=== PATIENT | female | born 1930 | race Caucasian/White ===

== ENCOUNTER 2018-08-02 17:17 | Inpatient (IN) | payer MEDICARE, OTHER ==
[~2018-08-02] VITALS: Ht 172.7 cm; Wt 70.5 kg
[~2018-08-02 17:17] MED LIST: CARI350T PO; CYCL-394 PO; NO HOME MEDS; NORCO10T PO
[2018-08-02 18:01] LABS: BASOPHILS % (AUTO) 0.7 % (0-1); EOSINOPHILS % (AUTO) 0.8 % (0-6); HEMOGLOBIN 15.6 g/dl (12.0-16.0); LYMPHOCYTES # (AUTO) 1.6 X10'3 (1.1-4.8); LYMPHOCYTES % (AUTO) 26.2 % (21-51); MEAN CORPUSCULAR HEMOGLOBIN 30.3 PG (27.0-31.0); MEAN CORPUSCULAR HGB CONC 33.1 % (33.0-36.5); MEAN CORPUSCULAR VOLUME 91.4 FL (78-98); MEAN PLATELET VOLUME 7.4 FL (7.4-10.4); MONOCYTES # (AUTO) 0.5 X10'3 (0-0.9); MONOCYTES % (AUTO) 7.5 % (2-12); NEUTROPHILS % (AUTO) 64.8 % (42-75); PLATELET COUNT 335 X10'3 (140-440); RED BLOOD COUNT 5.14 X10'6 (4.20-5.60); RED CELL DISTRIBUTION WIDTH 14.7 % (11.5-14.5); WHITE BLOOD COUNT 6.2 X10'3 (4.5-11.0)
[2018-08-02 18:14] LABS: ALANINE AMINOTRANSFERASE 17 U/L (12-78); ALBUMIN 3.9 G/DL (3.4-5.0); ALBUMIN/GLOBULIN RATIO 1.2 (1.1-1.5); ALKALINE PHOSPHATASE 135 IU/L (46-116); ANION GAP 10 (8-16); ASPARTATE AMINO TRANSFERASE 16 U/L (10-37); BILIRUBIN,TOTAL 0.4 MG/DL (0.1-1.0); BLOOD UREA NITROGEN 16 MG/DL (7-18); BUN/CREATININE RATIO 18.8 (6.6-38.0); CALCIUM 9.4 MG/DL (8.5-10.1); CHLORIDE 103 MMOL/L (99-107); CREATININE 0.85 MG/DL (0.40-0.90); GLUCOSE 125 MG/DL (70-104); POTASSIUM 3.5 MMOL/L (3.5-5.1); SODIUM 140 MMOL/L (135-145); TOTAL CARBON DIOXIDE 26.6 MMOL/L (24-32); TOTAL PROTEIN 7.1 G/DL (6.4-8.2); eGFR 63 ML/MIN
[2018-08-02 18:55] LABS: CLARITY,URINE SLIGHTLY CLOUDY (Clear); COLOR,URINE YELLOW (Yellow); GLUCOSE, URINE NEGATIVE (Neg); KETONES,URINE NEGATIVE (Neg); LEUKOCYTE ESTERASE ,URINE TRACE (Neg); NITRITES, URINE POSITIVE (Neg); OCCULT BLOOD,URINE SMALL (Neg); PH,URINE 5.5 (4.8-8.0); PROTEIN,URINE NEGATIVE (Neg); UROBILINOGEN,URINE 0.2 E.U/dL (0.2-1.0)
[2018-08-02 19:02] LABS: UA COLLECTION TYPE CLN CATCH MIDSTREAM
[2018-08-02 19:04] LABS: BACTERIA,URINE 4+ /HPF (Neg); RBC,URINE 0-2 /HPF (0-2); SQUAMOUS EPITHELIAL CELL,UR MODERATE /LPF (FEW); TRANSITIONAL EPI CELLS,URINE FEW /HPF
[2018-08-02] MEDS ORDERED: temazepam 15mg capsule PO PRN (21:00)
[2018-08-02] MEDS ORDERED: HYDROmorphone 1 mg/ml syringe IV PRN (21:15)
[2018-08-02] MEDS ORDERED: diphenhydrAMINE 25mg capsule PO PRN (21:15)
[2018-08-02] MEDS ORDERED: mag hydrox/Alum hydrox/simeth 30ml oral suspension PO PRN (21:15)
[2018-08-02] MEDS ORDERED: diphenhydrAMINE 50 mg/ml inj IV PRN (21:15)
[2018-08-02] MEDS ORDERED: ondansetron/PF 4mg/2ml inj IV PRN (21:15)
[2018-08-02] MEDS ORDERED: acetaminophen 325mg tablet PO PRN ×2 (21:15)
[2018-08-02] MEDS ORDERED: acetaminophen 650mg rectal suppository RC PRN (21:15)
[2018-08-02] MEDS ORDERED: magnesium hydroxide 30ml (MOM) UD suspension PO PRN (21:15)
[2018-08-02] MEDS ORDERED: HYDROcodone/acetaminophen 10/325mg tab PO PRN (21:15)
[2018-08-02] MEDS ORDERED: morphine 4 MG/ML inj SYRINge IV PRN (21:15)
[2018-08-02] MEDS ORDERED: bisacodyl 10mg suppository rectal RC PRN (21:15)
[2018-08-02] MEDS ORDERED: metoclopramide 5 mg/ml inj IV PRN (21:15)
[2018-08-02] MEDS ORDERED: hydrALAZINE 20mg/ml inj. IV PRN (21:20)
[2018-08-02] MEDS: normal saline 1000ml 1,000 ML IV SCH (22:08)
--- NOTE | 2018-08-02 22:42 | NUR ---
Called floor for report, RN to return call to ER.
[2018-08-02 23:15] VITALS: BP 166/98
--- NOTE | 2018-08-02 23:15 | NUR ---
PATIENT ADMITTED TO ROOM 357B FROM ER FOR UTI, DEMENTIA, HTN, CHRONIC BACK PAIN. PLACED COMFORTABLE IN BED. VITAL SIGNS TAKEN AND RECORDED.
--- NOTE | 2018-08-03 01:00 | NUR ---
PATIENT IS CONFUSED AND CAN'T BE DARTED, WILL REPORT TO AM SHIFT IF FAMILY COMES TO DO THE ADMISSION ASSESSMENT.
[2018-08-03 05:38] LABS: BASOPHILS # (AUTO) 0.1 X10'3 (0-0.2); BASOPHILS % (AUTO) 1.3 % (0-1); EOSINOPHILS # (AUTO) 0.1 X10'3 (0-0.9); EOSINOPHILS % (AUTO) 1.7 % (0-6); HEMATOCRIT 42.6 % (35.0-45.0); HEMOGLOBIN 14.3 g/dl (12.0-16.0); LYMPHOCYTES # (AUTO) 2.1 X10'3 (1.1-4.8); LYMPHOCYTES % (AUTO) 30.1 % (21-51); MEAN CORPUSCULAR HEMOGLOBIN 30.4 PG (27.0-31.0); MEAN CORPUSCULAR HGB CONC 33.7 % (33.0-36.5); MEAN CORPUSCULAR VOLUME 90.2 FL (78-98); MEAN PLATELET VOLUME 7.6 FL (7.4-10.4); MONOCYTES # (AUTO) 0.5 X10'3 (0-0.9); MONOCYTES % (AUTO) 7.1 % (2-12); NEUTROPHILS # (AUTO) 4.2 X10'3 (1.8-7.7); NEUTROPHILS % (AUTO) 59.8 % (42-75); PLATELET COUNT 310 X10'3 (140-440); RED BLOOD COUNT 4.72 X10'6 (4.20-5.60); RED CELL DISTRIBUTION WIDTH 14.5 % (11.5-14.5)
[2018-08-03 06:14] LABS: ALANINE AMINOTRANSFERASE 11 U/L (12-78); ALBUMIN 3.4 G/DL (3.4-5.0); ALBUMIN/GLOBULIN RATIO 1.1 (1.1-1.5); ALKALINE PHOSPHATASE 111 IU/L (46-116); ANION GAP 10 (8-16); ASPARTATE AMINO TRANSFERASE 7 U/L (10-37); BILIRUBIN,TOTAL 0.5 MG/DL (0.1-1.0); CALCIUM 8.9 MG/DL (8.5-10.1); CHLORIDE 107 MMOL/L (99-107); CREATININE 0.73 MG/DL (0.40-0.90); GLUCOSE 96 MG/DL (70-104); POTASSIUM 3.6 MMOL/L (3.5-5.1); SODIUM 142 MMOL/L (135-145); TOTAL CARBON DIOXIDE 25.5 MMOL/L (24-32); TOTAL PROTEIN 6.5 G/DL (6.4-8.2); eGFR 75 ML/MIN
--- NOTE | 2018-08-03 06:30 | NUR ---
Problems reprioritized. Patient report given, questions answered & plan of care reviewed with REJI RN.
[2018-08-03 06:33] LABS: BLOOD UREA NITROGEN 18 MG/DL (7-18); BUN/CREATININE RATIO 24.7 (6.6-38.0)
[2018-08-03 07:00] VITALS: BP 126/64
[2018-08-03] MEDS ORDERED: NO HOME MEDS (07:54)
[2018-08-03] MEDS: CefTRIAXone/D5W-Rocephin 1gm 50 ML IV SCH (08:07)
[2018-08-03] MEDS: docusate sod 100mg capsule PO SCH ×2 (08:12→20:28)
[2018-08-03] MEDS: heparin, porcine 5000 units/ml vial SQ SCH ×2 (08:13→20:31)
[2018-08-03 12:00] VITALS: BP 142/83
--- NOTE | 2018-08-03 18:40 | NUR ---
Patient in room [facility]. I have received report from Den LOMBARDO and had the opportunity to ask questions and assume patient care.
[2018-08-03 19:00] VITALS: BP 159/84
--- NOTE | 2018-08-03 19:03 | NUR ---
Problems reprioritized. Patient report given, questions answered & plan of care reviewed with QIANA LOMBARDO.
[2018-08-03] MEDS: lactobacillus rhamnosus 10,000 MMU CELLS/CAPSULE PO SCH (20:28)
[2018-08-03] MEDS: famotidine 20mg tablet PO SCH (20:28)
[2018-08-04] VITALS: BP 150/73
[2018-08-04 06:34] LABS: BASOPHILS # (AUTO) 0.1 X10'3 (0-0.2); EOSINOPHILS # (AUTO) 0.1 X10'3 (0-0.9); EOSINOPHILS % (AUTO) 2.4 % (0-6); HEMOGLOBIN 14.6 g/dl (12.0-16.0); LYMPHOCYTES # (AUTO) 1.8 X10'3 (1.1-4.8); LYMPHOCYTES % (AUTO) 29.6 % (21-51); MEAN CORPUSCULAR HEMOGLOBIN 30.2 PG (27.0-31.0); MEAN CORPUSCULAR HGB CONC 33.1 % (33.0-36.5); MEAN CORPUSCULAR VOLUME 91.3 FL (78-98); MONOCYTES # (AUTO) 0.4 X10'3 (0-0.9); MONOCYTES % (AUTO) 6.9 % (2-12); NEUTROPHILS # (AUTO) 3.7 X10'3 (1.8-7.7); NEUTROPHILS % (AUTO) 60.1 % (42-75); PLATELET COUNT 290 X10'3 (140-440); RED BLOOD COUNT 4.83 X10'6 (4.20-5.60); RED CELL DISTRIBUTION WIDTH 14.5 % (11.5-14.5); WHITE BLOOD COUNT 6.1 X10'3 (4.5-11.0)
--- NOTE | 2018-08-04 06:51 | NUR ---
Patient in room [facility]. I have received report from Jackie LOMBARDO and had the opportunity to ask questions and assume patient care.
--- NOTE | 2018-08-04 06:55 | NUR ---
Problems reprioritized. Patient report given, questions answered & plan of care reviewed with Den RN.
[2018-08-04 07:12] LABS: ALANINE AMINOTRANSFERASE 15 U/L (12-78); ALBUMIN 3.3 G/DL (3.4-5.0); ALBUMIN/GLOBULIN RATIO 1.1 (1.1-1.5); ALKALINE PHOSPHATASE 115 IU/L (46-116); ANION GAP 10 (8-16); ASPARTATE AMINO TRANSFERASE 15 U/L (10-37); BILIRUBIN,TOTAL 0.5 MG/DL (0.1-1.0); BLOOD UREA NITROGEN 19 MG/DL (7-18); BUN/CREATININE RATIO 22.1 (6.6-38.0); CALCIUM 8.8 MG/DL (8.5-10.1); CHLORIDE 108 MMOL/L (99-107); CREATININE 0.86 MG/DL (0.40-0.90); GLUCOSE 95 MG/DL (70-104); POTASSIUM 3.5 MMOL/L (3.5-5.1); SODIUM 145 MMOL/L (135-145); TOTAL CARBON DIOXIDE 27.4 MMOL/L (24-32); TOTAL PROTEIN 6.2 G/DL (6.4-8.2); eGFR 62 ML/MIN
[2018-08-04 08:00] VITALS: BP 131/84
[2018-08-04] MEDS: docusate sod 100mg capsule PO SCH ×2 (09:30→20:18)
[2018-08-04] MEDS: CefTRIAXone/D5W-Rocephin 1gm 50 ML IV SCH (09:31)
[2018-08-04] MEDS: lactobacillus rhamnosus 10,000 MMU CELLS/CAPSULE PO SCH ×2 (09:31→20:18)
[2018-08-04] MEDS: heparin, porcine 5000 units/ml vial SQ SCH ×2 (09:35→20:19)
[2018-08-04 11:00] VITALS: BP 150/87
[2018-08-04] MEDS: HYDROcodone/acetaminophen 5mg/325mg tablet PO PRN ×2 (15:24→20:18)
--- NOTE | 2018-08-04 18:30 | NUR ---
Problems reprioritized. Patient report given, questions answered & plan of care reviewed with QIANA LOMBARDO.
--- NOTE | 2018-08-04 18:30 | NUR ---
Patient in room [facility]. I have received report from Den LOMBARDO and had the opportunity to ask questions and assume patient care.
[2018-08-04 19:00] VITALS: BP 139/82
[2018-08-04] MEDS: famotidine 20mg tablet PO SCH (20:18)
[2018-08-04] MEDS: normal saline 1000ml 1,000 ML IV SCH (20:27)
[2018-08-05] VITALS: BP 131/90
[2018-08-05] MEDS: HYDROcodone/acetaminophen 5mg/325mg tablet PO PRN (05:53)
--- NOTE | 2018-08-05 06:23 | NUR ---
Problems reprioritized. Patient report given, questions answered & plan of care reviewed with Clarissa LOMBARDO.
[2018-08-05 06:47] LABS: BASOPHILS # (AUTO) 0.1 X10'3 (0-0.2); BASOPHILS % (AUTO) 1.1 % (0-1); EOSINOPHILS # (AUTO) 0.1 X10'3 (0-0.9); EOSINOPHILS % (AUTO) 1.8 % (0-6); HEMATOCRIT 47.4 % (35.0-45.0); HEMOGLOBIN 15.6 g/dl (12.0-16.0); LYMPHOCYTES # (AUTO) 2.2 X10'3 (1.1-4.8); MEAN CORPUSCULAR HEMOGLOBIN 30.2 PG (27.0-31.0); MEAN CORPUSCULAR HGB CONC 32.9 % (33.0-36.5); MEAN CORPUSCULAR VOLUME 91.6 FL (78-98); MEAN PLATELET VOLUME 8.3 FL (7.4-10.4); MONOCYTES # (AUTO) 0.5 X10'3 (0-0.9); MONOCYTES % (AUTO) 6.8 % (2-12); NEUTROPHILS # (AUTO) 4.6 X10'3 (1.8-7.7); NEUTROPHILS % (AUTO) 61.3 % (42-75); PLATELET COUNT 354 X10'3 (140-440); RED BLOOD COUNT 5.18 X10'6 (4.20-5.60); RED CELL DISTRIBUTION WIDTH 14.3 % (11.5-14.5); WHITE BLOOD COUNT 7.6 X10'3 (4.5-11.0)
[2018-08-05 07:02] LABS: ALANINE AMINOTRANSFERASE 14 U/L (12-78); ALBUMIN 3.7 G/DL (3.4-5.0); ALBUMIN/GLOBULIN RATIO 1.1 (1.1-1.5); ALKALINE PHOSPHATASE 130 IU/L (46-116); ASPARTATE AMINO TRANSFERASE 16 U/L (10-37); BILIRUBIN,TOTAL 0.6 MG/DL (0.1-1.0); BLOOD UREA NITROGEN 15 MG/DL (7-18); BUN/CREATININE RATIO 17.9 (6.6-38.0); CALCIUM 9.2 MG/DL (8.5-10.1); CREATININE 0.84 MG/DL (0.40-0.90); GLUCOSE 102 MG/DL (70-104); eGFR 64 ML/MIN
[2018-08-05 07:46] VITALS: BP 152/103
[2018-08-05] MEDS: CefTRIAXone/D5W-Rocephin 1gm 50 ML IV SCH (08:00)
[2018-08-05] MEDS: docusate sod 100mg capsule PO SCH (08:35)
[2018-08-05] MEDS: lactobacillus rhamnosus 10,000 MMU CELLS/CAPSULE PO SCH (08:35)
[2018-08-05] MEDS: heparin, porcine 5000 units/ml vial SQ SCH (08:36)
[2018-08-05 09:05] LABS: ANION GAP 10 (8-16); CHLORIDE 102 MMOL/L (99-107); POTASSIUM 3.6 MMOL/L (3.5-5.1); SODIUM 142 MMOL/L (135-145)
--- NOTE | 2018-08-05 09:20 | NUR ---
Patient in room [facility]. I have received report from Jackie LOMBARDO and had the opportunity to ask questions and assume patient care. Addendum: 08/05/18 at 0921 by Clarissa Leiva RN Above is wrong time, received report at 0615.
--- NOTE | 2018-08-05 09:21 | NUR ---
Attempted 2 IV starts that were unsuccessful. Patient refusing to have another IV attempt, stating she would rather take a pill instead. Will talk to .
[2018-08-05 11:27] VITALS: BP 142/83
--- NOTE | 2018-08-05 12:03 | NUR ---
aware of BP 152/103 this AM now 142/83. No new orders at this time.
--- NOTE | 2018-08-05 13:18 | NUR ---
Patient report called to [facility] nurse Jaylyn LOMBARDO. Pt to be picked up at 1400.
== END 2018-08-05 14:10 | DRG 689 ==
LOC: ER 17:18 → ED HOLD 21:12 → SUR 3N 23:10
PROVIDERS: ADMIT Family Medicine; ATTEND Internal Medicine
DX: N39.0 Urinary tract infection, site not specified (principal); G93.41 Metabolic encephalopathy; M48.55XA Collapsed vertebra, not elsewhere classified, thoracolumbar region, initial encounter for fracture; G89.4 Chronic pain syndrome; F03.90 Unspecified dementia, unspecified severity, without behavioral disturbance, psychotic disturbance, mood disturbance, and anxiety; B96.20 Unspecified Escherichia coli [E. coli] as the cause of diseases classified elsewhere; E03.9 Hypothyroidism, unspecified; M51.35 Other intervertebral disc degeneration, thoracolumbar region; I10 Essential (primary) hypertension; I48.91 Unspecified atrial fibrillation; R07.81 Pleurodynia; M41.9 Scoliosis, unspecified; K59.00 Constipation, unspecified; Z60.2 Problems related to living alone; M54.9 Dorsalgia, unspecified; Z88.8 Allergy status to other drugs, medicaments and biological substances; Z79.899 Other long term (current) drug therapy
CPT/HCPCS: 36415; 71045; 72070; 72100; 80053; 81001; 83880; 84439; 84443; 84480; 85025; 87070; 87077; 87088; 87186; 97161; 97530; 99285; G0378; J0696; J1644; J7030

== ENCOUNTER 2018-11-14 08:58 | Inpatient (IN) | payer MEDICARE, OTHER | END 2018-12-14 10:57 | disposition home health service (06) | LOC: ER 08:58 → SUR 3N 11-29 19:29 → ED HOLD 11:13 → SUR 3N 15:32 | DX: S32.591A Other specified fracture of right pubis, initial encounter for closed fracture (principal); G93.41 Metabolic encephalopathy; E87.1 Hypo-osmolality and hyponatremia; N39.0 Urinary tract infection, site not specified; E86.0 Dehydration; R62.7 Adult failure to thrive; I10 Essential (primary) hypertension; B96.20 Unspecified Escherichia coli [E. coli] as the cause of diseases classified elsewhere ==

== ENCOUNTER 2019-05-10 14:24 | Inpatient (IN) | payer MEDICARE, MEDICAID ==
[~2019-05-10] VITALS: Ht 162.6 cm; Wt 65.0 kg
[~2019-05-10 14:24] MED LIST changes: -CARI350T PO; -CYCL-394 PO; +DOCU250C96 PO; +LACT-228 PO; -NO HOME MEDS; -NORCO10T PO; +NYSPWD TP
[2019-05-10] MEDS ORDERED: normal saline 1000ML IV soln IVB ONE (15:20)
--- NOTE | 2019-05-10 15:28 | NUR ---
pt at CT, family at bedside
[2019-05-10 15:30] LABS: BASOPHILS % (AUTO) 0.4 % (0-1); EOSINOPHILS # (AUTO) 0.2 X10'3 (0-0.9); HEMATOCRIT 40.3 % (35.0-45.0); HEMOGLOBIN 13.8 g/dl (12.0-16.0); LYMPHOCYTES # (AUTO) 0.4 X10'3 (1.1-4.8); LYMPHOCYTES % (AUTO) 3.7 % (21-51); MEAN CORPUSCULAR HGB CONC 34.2 g/dL (33.0-36.5); MEAN CORPUSCULAR VOLUME 90.8 FL (78-98); MEAN PLATELET VOLUME 7.3 FL (7.4-10.4); MONOCYTES # (AUTO) 0.7 X10'3 (0-0.9); MONOCYTES % (AUTO) 7.1 % (2-12); NEUTROPHILS # (AUTO) 8.7 X10'3 (1.8-7.7); NEUTROPHILS % (AUTO) 86.8 % (42-75); PLATELET COUNT 231 X10'3 (140-440); RED BLOOD COUNT 4.44 X10'6 (4.20-5.60); RED CELL DISTRIBUTION WIDTH 14.4 % (11.5-14.5)
[2019-05-10 15:36] LABS: ALANINE AMINOTRANSFERASE 22 U/L (12-78); ALBUMIN 3.1 G/DL (3.4-5.0); ALKALINE PHOSPHATASE 78 IU/L (46-116); ANION GAP 7 (8-16); ASPARTATE AMINO TRANSFERASE 21 U/L (10-37); BILIRUBIN,TOTAL 0.6 MG/DL (0.1-1.0); BLOOD UREA NITROGEN 15 MG/DL (7-18); BUN/CREATININE RATIO 16.5 (6.6-38.0); CALCIUM 8.9 MG/DL (8.5-10.1); CHLORIDE 102 MMOL/L (99-107); CREATININE 0.91 MG/DL (0.40-0.90); GLUCOSE 117 MG/DL (70-104); SODIUM 134 MMOL/L (135-145); TOTAL PROTEIN 6.1 G/DL (6.4-8.2); eGFR 58 ML/MIN
--- NOTE | 2019-05-10 15:44 | NUR ---
pt is back from CT, pt is [facility] 14, oriented to person only, doesn't know date or where she is, resp even and unlabored, 1st liter NS infusing w/o
--- NOTE | 2019-05-10 16:00 | NUR ---
in and out cath done with sterile techique, pt сергей well, no complications, sample sent to lab
--- NOTE | 2019-05-10 16:07 | NUR ---
pt wearing depends, diaper was saturated, changed to clean one, no skin breakdown to back/coccyx area
[2019-05-10 16:28] LABS: COLOR,URINE YELLOW (Yellow); GLUCOSE, URINE NEGATIVE (Neg); KETONES,URINE NEGATIVE (Neg); LEUKOCYTE ESTERASE ,URINE TRACE (Neg); NITRITES, URINE POSITIVE (Neg); OCCULT BLOOD,URINE TRACE-INTACT (Neg); PH,URINE 6.5 (4.8-8.0); PROTEIN,URINE NEGATIVE (Neg); UROBILINOGEN,URINE 0.2 E.U/dL (0.2-1.0)
[2019-05-10 16:31] LABS: CLARITY,URINE SLIGHTLY CLOUDY (Clear); UA COLLECTION TYPE FOLEY CATH
[2019-05-10 16:35] LABS: RBC,URINE 0-2 /HPF (0-2); WBC,URINE 30-50 /HPF (0-4)
[2019-05-10 16:36] LABS: BACTERIA,URINE 3+ /HPF (Neg); MUCUS STRANDS NONE SEEN /LPF (Neg); SQUAMOUS EPITHELIAL CELL,UR FEW /LPF (FEW)
--- NOTE | 2019-05-10 16:44 | NUR ---
PT CONTINUES TO REST QUIETLY, 2ND LITER NS INFUSING W/O,
[2019-05-10] MEDS ORDERED: CefTRIAXone 2gm/D5W 50ml 50 ML IV ONE (16:50)
[2019-05-10] MEDS: normal saline 1000ml 1,000 ML IV SCH (17:04)
[2019-05-10] MEDS ORDERED: mag hydrox/Alum hydrox/simeth 30ml oral suspension PO PRN (17:05)
[2019-05-10] MEDS ORDERED: ondansetron/PF 4mg/2ml inj IV PRN (17:05)
[2019-05-10] MEDS ORDERED: magnesium hydroxide 30ml (MOM) UD suspension PO PRN (17:05)
--- NOTE | 2019-05-10 18:59 | NUR ---
PT MOVED TO [facility], REPORT TO CHILO LOMABRDO
[2019-05-10] MEDS: heparin, porcine 5000 units/ml vial SQ SCH (19:51)
[2019-05-10] MEDS: acetaminophen 325mg tablet PO PRN (19:52)
[2019-05-10] MEDS ORDERED: HYDROcodone/acetaminophen 5mg/325mg tablet PO ONE (23:50)
[2019-05-11] VITALS: BP 144/81
[2019-05-11] MEDS: acetaminophen 325mg tablet PO PRN (03:24)
[2019-05-11] MEDS: normal saline 1000ml 1,000 ML IV SCH ×3 (03:26→21:30)
[2019-05-11 04:54] LABS: BASOPHILS % (AUTO) 0.1 % (0-1); EOSINOPHILS # (AUTO) 0.2 X10'3 (0-0.9); EOSINOPHILS % (AUTO) 3.8 % (0-6); HEMATOCRIT 36.9 % (35.0-45.0); HEMOGLOBIN 12.6 g/dl (12.0-16.0); LYMPHOCYTES # (AUTO) 0.3 X10'3 (1.1-4.8); LYMPHOCYTES % (AUTO) 4.6 % (21-51); MEAN CORPUSCULAR HEMOGLOBIN 31.4 PG (27.0-31.0); MEAN CORPUSCULAR HGB CONC 34.1 g/dL (33.0-36.5); MEAN CORPUSCULAR VOLUME 92.1 FL (78-98); MEAN PLATELET VOLUME 7.8 FL (7.4-10.4); MONOCYTES # (AUTO) 0.4 X10'3 (0-0.9); MONOCYTES % (AUTO) 6.6 % (2-12); NEUTROPHILS # (AUTO) 5.2 X10'3 (1.8-7.7); NEUTROPHILS % (AUTO) 84.9 % (42-75); PLATELET COUNT 202 X10'3 (140-440); RED BLOOD COUNT 4.01 X10'6 (4.20-5.60); RED CELL DISTRIBUTION WIDTH 14.2 % (11.5-14.5); WHITE BLOOD COUNT 6.1 X10'3 (4.5-11.0)
[2019-05-11 05:05] LABS: ALBUMIN 2.9 G/DL (3.4-5.0); ANION GAP 9 (8-16); BLOOD UREA NITROGEN 10 MG/DL (7-18); BUN/CREATININE RATIO 15.9 (6.6-38.0); CALCIUM 8.3 MG/DL (8.5-10.1); CHLORIDE 106 MMOL/L (99-107); CREATININE 0.63 MG/DL (0.40-0.90); GLUCOSE 93 MG/DL (70-104); POTASSIUM 3.9 MMOL/L (3.5-5.1); SODIUM 136 MMOL/L (135-145); TOTAL CARBON DIOXIDE 20.7 MMOL/L (24-32); eGFR 89 ML/MIN
--- NOTE | 2019-05-11 06:39 | NUR ---
Problems reprioritized. Patient report given, questions answered & plan of care reviewed with Roxanna LOMBARDO.
[2019-05-11 07:00] VITALS: BP 149/89
[2019-05-11] MEDS: CefTRIAXone/D5W-Rocephin 1gm 50 ML IV SCH (09:11)
[2019-05-11] MEDS: heparin, porcine 5000 units/ml vial SQ SCH ×2 (09:13→19:32)
[2019-05-11] MEDS ORDERED: HYDROcodone/acetaminophen 5mg/325mg tablet PO PRN (10:15)
[2019-05-11] MEDS ORDERED: ciprofloxacin 250mg tablet PO ONE (12:10)
[2019-05-11] MEDS ORDERED: NO HOME MEDS ×2 (13:22→14:23)
--- NOTE | 2019-05-11 15:42 | NUR ---
Student documentation: I have reviewed all interventions, assessments performed and documented by [Pj [email or web address]].
[2019-05-11 18:00] VITALS: BP 149/88
--- NOTE | 2019-05-11 18:27 | NUR ---
Patient in room [facility]. I have received report from Roxanna LOMBARDO and had the opportunity to ask questions and assume patient care.
[2019-05-11] MEDS: lactobacillus rhamnosus 10,000 MMU CELLS/CAPSULE PO SCH (19:31)
[2019-05-11] MEDS: Cipro HC otic suspension 10ML bottle RIGHT EAR SCH (19:32)
[2019-05-11] MEDS: ciprofloxacin 250mg tablet PO SCH (21:29)
[2019-05-12] VITALS: BP 122/66
[2019-05-12] MEDS: normal saline 1000ml 1,000 ML IV SCH ×2 (05:54→19:14)
[2019-05-12 06:18] LABS: ALBUMIN 2.9 G/DL (3.4-5.0); ANION GAP 9 (8-16); BLOOD UREA NITROGEN 7 MG/DL (7-18); BUN/CREATININE RATIO 12.5 (6.6-38.0); CALCIUM 7.9 MG/DL (8.5-10.1); CHLORIDE 101 MMOL/L (99-107); CREATININE 0.56 MG/DL (0.40-0.90); GLUCOSE 76 MG/DL (70-104); POTASSIUM 3.3 MMOL/L (3.5-5.1); SODIUM 135 MMOL/L (135-145); TOTAL CARBON DIOXIDE 24.6 MMOL/L (24-32); eGFR > 90 ML/MIN
[2019-05-12 06:24] LABS: BASOPHILS % (AUTO) 0.4 % (0-1); EOSINOPHILS # (AUTO) 0.2 X10'3 (0-0.9); EOSINOPHILS % (AUTO) 3.3 % (0-6); HEMATOCRIT 38.7 % (35.0-45.0); HEMOGLOBIN 13.1 g/dl (12.0-16.0); LYMPHOCYTES # (AUTO) 0.8 X10'3 (1.1-4.8); LYMPHOCYTES % (AUTO) 15.5 % (21-51); MEAN CORPUSCULAR HEMOGLOBIN 31.2 PG (27.0-31.0); MEAN CORPUSCULAR HGB CONC 33.8 g/dL (33.0-36.5); MEAN CORPUSCULAR VOLUME 92.4 FL (78-98); MEAN PLATELET VOLUME 8.2 FL (7.4-10.4); MONOCYTES # (AUTO) 0.6 X10'3 (0-0.9); MONOCYTES % (AUTO) 12.3 % (2-12); NEUTROPHILS # (AUTO) 3.3 X10'3 (1.8-7.7); NEUTROPHILS % (AUTO) 68.5 % (42-75); PLATELET COUNT 199 X10'3 (140-440); RED BLOOD COUNT 4.19 X10'6 (4.20-5.60); RED CELL DISTRIBUTION WIDTH 14.6 % (11.5-14.5); WHITE BLOOD COUNT 4.9 X10'3 (4.5-11.0)
--- NOTE | 2019-05-12 06:40 | NUR ---
Problems reprioritized. Patient report given, questions answered & plan of care reviewed with Roxanna LOMBARDO.Patient slept well last night and shows no sign of distress
[2019-05-12 07:40] VITALS: BP 120/85
[2019-05-12] MEDS: Cipro HC otic suspension 10ML bottle RIGHT EAR SCH ×2 (08:00→20:35)
[2019-05-12] MEDS: CefTRIAXone/D5W-Rocephin 1gm 50 ML IV SCH (08:26)
[2019-05-12] MEDS: heparin, porcine 5000 units/ml vial SQ SCH ×2 (08:45→20:31)
[2019-05-12] MEDS: lactobacillus rhamnosus 10,000 MMU CELLS/CAPSULE PO SCH ×2 (09:00→20:31)
[2019-05-12] MEDS: ciprofloxacin 250mg tablet PO SCH ×2 (10:22→20:34)
[2019-05-12 15:08] VITALS: BP 151/96
[2019-05-12 19:00] VITALS: BP_SYST 142; BP_SYST 151; BP_DIAS 85
[2019-05-13] MEDS: normal saline 1000ml 1,000 ML IV SCH ×2 (05:28→15:04)
--- NOTE | 2019-05-13 06:16 | NUR ---
Patient in room [facility]. I have received report from Nicki LOMBARDO and had the opportunity to ask questions and assume patient care.
--- NOTE | 2019-05-13 06:40 | NUR ---
Problems reprioritized. Patient report given, questions answered & plan of care reviewed with Lizzie LOMBARDO. Addendum: 05/13/19 at 0641 by Nicki Rousseau RN Amended: Links added.
[2019-05-13 07:00] VITALS: BP 140/88
[2019-05-13 07:31] LABS: BASOPHILS % (AUTO) 0.9 % (0-1); EOSINOPHILS # (AUTO) 0.1 X10'3 (0-0.9); EOSINOPHILS % (AUTO) 1.9 % (0-6); HEMATOCRIT 41.7 % (35.0-45.0); HEMOGLOBIN 14.2 g/dl (12.0-16.0); LYMPHOCYTES # (AUTO) 1.2 X10'3 (1.1-4.8); LYMPHOCYTES % (AUTO) 24.8 % (21-51); MEAN CORPUSCULAR HEMOGLOBIN 30.9 PG (27.0-31.0); MEAN CORPUSCULAR VOLUME 90.7 FL (78-98); MEAN PLATELET VOLUME 8.1 FL (7.4-10.4); MONOCYTES # (AUTO) 0.6 X10'3 (0-0.9); MONOCYTES % (AUTO) 12.5 % (2-12); NEUTROPHILS # (AUTO) 2.8 X10'3 (1.8-7.7); NEUTROPHILS % (AUTO) 59.9 % (42-75); PLATELET COUNT 236 X10'3 (140-440); RED BLOOD COUNT 4.59 X10'6 (4.20-5.60); RED CELL DISTRIBUTION WIDTH 14.4 % (11.5-14.5); WHITE BLOOD COUNT 4.7 X10'3 (4.5-11.0)
[2019-05-13] MEDS: CefTRIAXone/D5W-Rocephin 1gm 50 ML IV SCH (07:33)
[2019-05-13] MEDS: lactobacillus rhamnosus 10,000 MMU CELLS/CAPSULE PO SCH (07:33)
[2019-05-13] MEDS: heparin, porcine 5000 units/ml vial SQ SCH (07:34)
[2019-05-13] MEDS: Cipro HC otic suspension 10ML bottle RIGHT EAR SCH (07:34)
[2019-05-13 07:35] LABS: ALBUMIN 2.9 G/DL (3.4-5.0); ANION GAP 10 (8-16); BLOOD UREA NITROGEN 6 MG/DL (7-18); BUN/CREATININE RATIO 11.3 (6.6-38.0); CALCIUM 8.7 MG/DL (8.5-10.1); CHLORIDE 105 MMOL/L (99-107); CREATININE 0.53 MG/DL (0.40-0.90); GLUCOSE 83 MG/DL (70-104); POTASSIUM 3.2 MMOL/L (3.5-5.1); SODIUM 140 MMOL/L (135-145); TOTAL CARBON DIOXIDE 25.2 MMOL/L (24-32); eGFR > 90 ML/MIN
[2019-05-13] MEDS ORDERED: potassium Cl 20 mEq SR tablet PO STA (10:34)
[2019-05-13] MEDS: ciprofloxacin 250mg tablet PO SCH (10:43)
[2019-05-13 12:00] VITALS: BP 151/90
--- NOTE | 2019-05-13 15:40 | NUR ---
Tried to call to give report and that RN is getting report on a different patient. Asked if I could call back in a few minutes.
--- NOTE | 2019-05-13 16:15 | NUR ---
Report called to Stephanie Mayer all questions answered. Patients IV dc'd cannula intact. Tele Dc'd.
--- NOTE | 2019-05-13 17:24 | NUR ---
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 Patient voided before leaving and I placed a depends on her for transport. Patient taken via wheelchair. Belongings sent with patient.
== END 2019-05-13 17:15 | DRG 689 ==
LOC: ER 14:24 → ED HOLD 18:08 → SUR 3N 21:45
PROVIDERS: ADMIT Family Medicine; ATTEND Family Medicine
DX: N39.0 Urinary tract infection, site not specified (principal); G93.41 Metabolic encephalopathy; F03.90 Unspecified dementia, unspecified severity, without behavioral disturbance, psychotic disturbance, mood disturbance, and anxiety; H60.8X1 Other otitis externa, right ear; Z88.8 Allergy status to other drugs, medicaments and biological substances
CPT/HCPCS: 36415; 70450; 80048; 80053; 81001; 83605; 85025; 85610; 87040; 87077; 87081; 87088; 87186; 96365; 97110; 97112; 97116; 97161; 97530; 97535; 99285; G0378; J0696; J1644; J7030